=== PATIENT | male | born 1980 | race Caucasian/White ===

== ENCOUNTER 2018-01-04 11:04 | Inpatient (IN) | payer OTHER ==
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
[2018-01-04] MEDS ORDERED: MENTHOL/PHENOL 1 EACH UD MM PRN (14:04)
[2018-01-04] MEDS ORDERED: P-EPHED 60MG/TRIPROLIDI 2.5MG TABLET PO PRN (14:04)
[2018-01-04] MEDS ORDERED: LOPERAMIDE HCL 2 MG CAPSULE PO PRN (14:04)
[2018-01-04] MEDS ORDERED: chlordiazePOXIDE HCL 25 MG CAPSULE PO PRN (14:04)
[2018-01-04] MEDS ORDERED: NICOTINE POLACRILEX 2 MG GUM BC PRN (14:04)
[2018-01-04] MEDS ORDERED: guaiFENesin/D-METHORPHAN HB 10 ML UNIT-DOSE CUPS PO PRN (14:04)
[2018-01-04] MEDS ORDERED: MAGNESIUM CITRATE 300 ML BOTTLE PO PRN (14:04)
[2018-01-04] MEDS ORDERED: MAG HYDROX/AL HYDROX/SIMETH 30 ML UNIT-DOSE CUP PO PRN (14:04)
[2018-01-04] MEDS ORDERED: ACETAMINOPHEN 325 MG TABLET (FP) PO PRN (14:04)
[2018-01-04] MEDS ORDERED: MAGNESIUM HYDROX 2400MG/30ML ORAL SUSPENSION 30 ML CUP PO PRN (14:04)
[2018-01-04] MEDS: NICOTINE 14 MG/24 HOURS TOPICAL PATCH TD SCH (15:56)
[2018-01-04] MEDS: MELATONIN 5 MG TABLETS PO PRN (22:10)
[2018-01-04] MEDS: chlordiazePOXIDE HCL 25 MG CAPSULE PO SCH (22:10)
[2018-01-04] MEDS: THIAMINE HCL 100 MG TABLET (FP) PO SCH (22:10)
[2018-01-05 01:25] LABS: URINE APPEARANCE CLEAR; URINE BILIRUBIN NEGATIVE (<2.0 mg/dL); URINE COLOR COLORLESS; URINE GLUCOSE (UA) NEGATIVE (NEGATIVE); URINE KETONE NEGATIVE (NEGATIVE); URINE LEUK ESTERASE NEGATIVE (NEGATIVE); URINE NITRITE NEGATIVE (NEGATIVE); URINE PROTEIN NEGATIVE (NEGATIVE); URINE UROBILINOGEN NEGATIVE mg/dL (0.2-1.0)
[2018-01-05] MEDS: IBUPROFEN 400 MG TABLET (FP) PO PRN (05:50)
[2018-01-05] MEDS: chlordiazePOXIDE HCL 25 MG CAPSULE PO SCH ×4 (05:50→22:16)
--- NOTE | 2018-01-05 08:53 | CONSULT ---
[facility] Psychiatric Consult - Data Date of interview: 01/05/18 Admission source: [facility] Identifying data: Patient is a 37 year old single male, without kids, homeless, unemployed, and supported by public assistance. This is patient's first admission to detox at [place]. Pt. admitted to for alcohol, marijuana, cocaine, and opiate dependence. Substance Abuse History: Smoking Cessation. Smoking history: Current every day smoker. Have you smoked in the past 12 months: Yes. Aproximately how many cigarettes per day: 2. Cigars Per Day: 0. Hx Chewing Tobacco Use: No. Initiated information on smoking cessation: Yes. 'Breaking Loose' booklet given : 01/04/18. - Substance & Tx. History. Hx Alcohol Use: Yes. Hx Substance Use : Yes. Substance Use Type: Alcohol, Heroin, Marijuana, Opiates. Hx Substance Use Treatment: Yes (11/2016) Medical History: umbilical hernia since 2005 Psychiatric History: Patient reports two psychiatric hospitalizations, most recently in [place] in 2002 after a suicide attempt via hanging self. Pt. was also hospitalized in 2000 in [facility]. Patient is nonadherent to outpatient care. States he last saw an outpatient psychiatrist three months ago. As per pharmacy claims patient's most recent prescription was on 04/15/17 for celexa, depakote and trazodone. Pt. nonadherent to medications. Pt. reports poor sleep. Pt. currently denies suicidal and homicidal ideation. Physical/Sexual Abuse/Trauma History: Denies. Mental Status Exam - Mental Status Exam Alert and Oriented to: Time, Place, Person Cognitive Function: Good Patient Appearance: Well Groomed Mood: Euthymic Affect: Mood Congruent Patient Behavior: Cooperative Speech Pattern: Appropriate Voice Loudness: Normal Thought Process: Intact, Goal Oriented Thought Disorder: Not Present Hallucinations: Denies Suicidal Ideation: Denies Homicidal Ideation: Denies Insight/Judgement: Poor Sleep: Poorly Appetite: Fair Muscle strength/Tone: Normal Gait/Station: Normal Psychiatric Findings - Problem List ([place] 1, 2,3) (1) Alcohol dependence with uncomplicated withdrawal Current Visit: Yes Status: Acute (2) Nicotine dependence Current Visit: Yes Status: Chronic Qualifiers: Nicotine product type: cigarettes Substance use status: in withdrawal Qualified Code(s): F17.213 - Nicotine dependence, cigarettes, with withdrawal (3) Cocaine dependence Current Visit: Yes Status: Acute (4) Methadone maintenance therapy patient Current Visit: Yes Status: Acute (5) Substance induced mood disorder Current Visit: Yes Status: Acute - Initial Treatment Plan Initial Treatment Plan: Psychoeducation provided. Detoxification in progress. Seroquel 50mg qhs ordered. Benefits and side effects discussed. Verbal consent given. Will continue to monitor.
[2018-01-05] MEDS ORDERED: METHADONE HCL 10 MG TABLET PO ONE (08:57)
[2018-01-05] MEDS ORDERED: METHADONE HCL 40 MG DISPERSABLE TABLET ONE (10:15)
[2018-01-05] MEDS ORDERED: METHADONE HCL 10 MG TABLET ONE (10:15)
[2018-01-05] MEDS ORDERED: METHADONE 200 MG, METHADONE 30 MG PO ONE (10:15)
[2018-01-05 10:25] LABS: HEMATOCRIT 37.6 % (35.4-49); HEMOGLOBIN 12.9 GM/dL (11.7-16.9); MCH 31.3 pg (25.7-33.7); MCHC 34.4 g/dl (32.0-35.9); MEAN CELL VOLUME 91.1 fl (80-96); PLATELET COUNT 308 K/MM3 (134-434); RBC 4.13 M/mm3 (4.00-5.60); RDW 13.1 % (11.9-15.9); WHITE BLOOD COUNT 5.2 K/mm3 (4.0-10.0)
[2018-01-05] MEDS: PRENATAL VITAMINS W/ FOLIC ACID TABLET (FP) PO SCH (10:38)
[2018-01-05] MEDS: NICOTINE 14 MG/24 HOURS TOPICAL PATCH TD SCH (10:38)
[2018-01-05 11:32] LABS: CHLORIDE 107 mmol/L (98-107); POTASSIUM 4.6 mmol/L (3.5-5.1); SODIUM 143 mmol/L (136-145)
[2018-01-05 12:39] LABS: ALBUMIN 3.5 g/dl (3.4-5.0); ALK PHOS 87 U/L (45-117); BILIRUBIN,TOTAL 0.2 mg/dL (0.2-1.0); BLOOD UREA NITROGEN 12 mg/dL (7-18); CALCIUM 8.5 mg/dL (8.5-10.1); CREATININE 0.9 mg/dL (0.7-1.3); GLUCOSE,RANDOM 106 mg/dL (74-106); SGOT/AST 21 U/L (15-37); SGPT/ALT 21 U/L (12-78)
[2018-01-05 12:58] LABS: ANION GAP 7 (8-16); CO2 29 mmol/L (21-32)
[2018-01-05] MEDS ORDERED: CYCLOBENZAPRINE HCL 5 MG TABLET PO PRN (12:58)
--- NOTE | 2018-01-05 12:58 | PN ---
[facility] CIWA - CIWA Score Nausea/Vomitin-No Nausea/No Vomiting Muscle Tremors: 4-Moderate,w/Arms Extend Anxiety: 4-Mod. Anxious/Guarded Agitation: 4-Moderately Restless Paroxysmal Sweats: 1-Minimal Palms Moist Orientation: 0-Oriented Tacttile Disturbances: 0-None Auditory Disturbances: 0-None Visual Disturbances: 0-None Headache: 0-None Present CIWA-Ar Total Score: 13 S Progress Note (SOAP) Subjective: ANXIETY,SWEATS, BACK/BODY ACHES, TREMORS, FATIGUE. Objective: 01/05/18 12:57 Vital Signs Temperature 96.7 F L 01/05/18 09:41 Pulse Rate 73 01/05/18 09:41 Respiratory Rate 18 01/05/18 09:41 Blood Pressure 131/75 01/05/18 09:41 O2 Sat by Pulse Oximetry (%) Laboratory Last Values WBC 5.2 K/mm3 (4.0-10.0) 01/05/18 06:00 RBC 4.13 M/mm3 (4.00-5.60) 01/05/18 06:00 Hgb 12.9 GM/dL (11.7-16.9) 01/05/18 06:00 Hct 37.6 % (35.4-49) 01/05/18 06:00 MCV 91.1 fl (80-96) 01/05/18 06:00 MCH 31.3 pg (25.7-33.7) 01/05/18 06:00 MCHC 34.4 g/dl (32.0-35.9) 01/05/18 06:00 RDW 13.1 % (11.9-15.9) 01/05/18 06:00 Plt Count 308 K/MM3 (134-434) 01/05/18 06:00 MPV 9.0 fl (7.5-11.1) 01/05/18 06:00 Sodium 143 mmol/L (136-145) 01/05/18 06:00 Potassium 4.6 mmol/L (3.5-5.1) 01/05/18 06:00 Chloride 107 mmol/L (98-107) 01/05/18 06:00 BUN 12 mg/dL (7-18) 01/05/18 06:00 Creatinine 0.9 mg/dL (0.7-1.3) 01/05/18 06:00 Creat Clearance w eGFR > 60 (>60) 01/05/18 06:00 Random Glucose 106 mg/dL (74-106) 01/05/18 06:00 Calcium 8.5 mg/dL (8.5-10.1) 01/05/18 06:00 Total Bilirubin 0.2 mg/dL (0.2-1.0) 01/05/18 06:00 AST 21 U/L (15-37) 01/05/18 06:00 ALT 21 U/L (12-78) 01/05/18 06:00 Alkaline Phosphatase 87 U/L (45-117) 01/05/18 06:00 Total Protein 7.0 g/dl (6.4-8.2) 01/05/18 06:00 Albumin 3.5 g/dl (3.4-5.0) 01/05/18 06:00 Urine Color Colorless 01/04/18 23:56 Urine Appearance Clear 01/04/18 23:56 Urine pH 6.0 (5.0-8.0) 01/04/18 23:56 Ur Specific [place] 1.002 (1.001-1.035) 01/04/18 23:56 Urine Protein Negative (NEGATIVE) 01/04/18 23:56 Urine Glucose (UA) Negative (NEGATIVE) 01/04/18 23:56 Urine Ketones Negative (NEGATIVE) 01/04/18 23:56 Urine Blood Negative (NEGATIVE) 01/04/18 23:56 Urine Nitrite Negative (NEGATIVE) 01/04/18 23:56 Urine Bilirubin Negative (<2.0 mg/dL) 01/04/18 23:56 Urine Urobilinogen Negative mg/dL (0.2-1.0) 01/04/18 23:56 Ur Leukocyte Esterase Negative (NEGATIVE) 01/04/18 23:56 RPR Titer Nonreactive (NONREACTIVE) 01/05/18 06:00 HIV 1&2 Antibody Screen Negative 01/04/18 06:00 HIV P24 Antigen Negative 01/04/18 06:00 Assessment: 01/05/18 12:57 WITHDRAWAL SX Plan: CONTINUE DETOX MOTRIN PRN FLEXERIL DIRECTED
--- NOTE | 2018-01-05 14:00 | EKG ---
Test Reason : Blood Pressure : / mmHG Vent. Rate : 066 BPM Atrial Rate : 066 BPM P-R Int : 130 ms QRS Dur : 096 ms QT Int : 442 ms P-R-T Axes : 064 066 064 degrees QTc Int : 463 ms NORMAL SINUS RHYTHM NORMAL ECG NO PREVIOUS ECGS AVAILABLE Confirmed by DIYA DAWKINS MD ([id number]) on 01/05/2018 1:59:24 PM Referred By: Confirmed By:DIYA DAWKINS MD
[2018-01-05] MEDS: QUEtiapine FUMARATE 50 MG TABLET PO SCH (22:16)
[2018-01-05] MEDS: MELATONIN 5 MG TABLETS PO PRN (22:16)
[2018-01-05] MEDS: THIAMINE HCL 100 MG TABLET (FP) PO SCH (22:22)
[2018-01-06] MEDS ORDERED: METHADONE HCL 10 MG TABLET ONE (04:29)
[2018-01-06] MEDS ORDERED: METHADONE HCL 40 MG DISPERSABLE TABLET ONE (04:30)
[2018-01-06] MEDS: METHADONE 200 MG, METHADONE 30 MG PO SCH (05:35)
[2018-01-06] MEDS ORDERED: METHADONE HCL 10 MG TABLET PO SCH (06:00)
[2018-01-06] MEDS: chlordiazePOXIDE HCL 25 MG CAPSULE PO SCH ×3 (06:48→17:33)
[2018-01-06] MEDS: PRENATAL VITAMINS W/ FOLIC ACID TABLET (FP) PO SCH (10:37)
[2018-01-06] MEDS: LIDOCAINE 5% TOPICAL PATCH TP SCH (10:38)
[2018-01-06] MEDS: NICOTINE 14 MG/24 HOURS TOPICAL PATCH TD SCH (10:52)
--- NOTE | 2018-01-06 12:05 | PN ---
[facility] CIWA - CIWA Score Nausea/Vomitin-No Nausea/No Vomiting Muscle Tremors: 4-Moderate,w/Arms Extend Anxiety: 4-Mod. Anxious/Guarded Agitation: 4-Moderately Restless Paroxysmal Sweats: 1-Minimal Palms Moist Orientation: 0-Oriented Tacttile Disturbances: 3-Moderate Itch/Numb/Burn (BACK PAIN/ HAND PAIN) Auditory Disturbances: 0-None Visual Disturbances: 0-None Headache: 0-None Present CIWA-Ar Total Score: 16 S Progress Note (SOAP) Subjective: ANXIETY,IRRITABILITY, BACK PIAN- HX HERNIATED DISC, HAND PAIN-HX SURGERIES 10 YRS AGO Objective: 01/06/18 12:02 Vital Signs Temperature 96.6 F L 01/06/18 09:15 Pulse Rate 63 01/06/18 09:15 Respiratory Rate 18 01/06/18 09:15 Blood Pressure 102/68 01/06/18 09:15 O2 Sat by Pulse Oximetry (%) Laboratory Tests 01/04/18 01/04/18 01/05/18 06:00 23:56 06:00 WBC 5.2 RBC 4.13 Hgb 12.9 Hct 37.6 MCV 91.1 MCH 31.3 MCHC 34.4 RDW 13.1 Plt Count 308 MPV 9.0 Sodium Potassium Chloride Carbon Dioxide Anion Gap BUN Creatinine Creat Clearance w eGFR Random Glucose Calcium Total Bilirubin AST ALT Alkaline Phosphatase Total Protein Albumin Urine Color Colorless Urine Appearance Clear Urine pH 6.0 Ur Specific [place] 1.002 Urine Protein Negative Urine Glucose (UA) Negative Urine Ketones Negative Urine Blood Negative Urine Nitrite Negative Urine Bilirubin Negative Urine Urobilinogen Negative Ur Leukocyte Esterase Negative RPR Titer HIV 1&2 Antibody Screen Negative HIV P24 Antigen Negative 01/05/18 01/05/18 06:00 06:00 WBC RBC Hgb Hct MCV MCH MCHC RDW Plt Count MPV Sodium 143 Potassium 4.6 Chloride 107 Carbon Dioxide 29 Anion Gap 7 L BUN 12 Creatinine 0.9 Creat Clearance w eGFR > 60 Random Glucose 106 Calcium 8.5 Total Bilirubin 0.2 AST 21 ALT 21 Alkaline Phosphatase 87 Total Protein 7.0 Albumin 3.5 Urine Color Urine Appearance Urine pH Ur Specific [place] Urine Protein Urine Glucose (UA) Urine Ketones Urine Blood Urine Nitrite Urine Bilirubin Urine Urobilinogen Ur Leukocyte Esterase RPR Titer Nonreactive HIV 1&2 Antibody Screen HIV P24 Antigen Assessment: 01/06/18 12:02 WITHDRAWAL SX Plan: CONTINUE DETOX LIDOCAINE PATCH TOPICAL DAILY DIRECTED INCREASE PO FLUIDS.
[2018-01-06] MEDS: THIAMINE HCL 100 MG TABLET (FP) PO SCH (22:38)
[2018-01-06] MEDS: chlordiazePOXIDE 5 MG CAPSULE PO SCH (22:39)
[2018-01-06] MEDS: QUEtiapine FUMARATE 50 MG TABLET PO SCH (22:39)
[2018-01-06] MEDS: LIDOCAINE PATCH REMOVAL MC SCH (22:40)
[2018-01-06] MEDS: IBUPROFEN 400 MG TABLET (FP) PO PRN (22:42)
[2018-01-07] MEDS ORDERED: METHADONE HCL 40 MG DISPERSABLE TABLET ONE (04:59)
[2018-01-07] MEDS ORDERED: METHADONE HCL 10 MG TABLET ONE (04:59)
[2018-01-07] MEDS: METHADONE 200 MG, METHADONE 30 MG PO SCH (05:27)
[2018-01-07] MEDS: chlordiazePOXIDE 5 MG CAPSULE PO SCH ×3 (05:28→17:12)
[2018-01-07] MEDS: PRENATAL VITAMINS W/ FOLIC ACID TABLET (FP) PO SCH (10:40)
[2018-01-07] MEDS: LIDOCAINE 5% TOPICAL PATCH TP SCH (10:40)
[2018-01-07] MEDS: NICOTINE 14 MG/24 HOURS TOPICAL PATCH TD SCH (10:40)
[2018-01-07] MEDS ORDERED: CYCLOBENZAPRINE HCL 10 MG TABLET (FP) PO PRN (11:05)
--- NOTE | 2018-01-07 12:52 | PN ---
S Progress Note (SOAP) Subjective: PT CONTINUES TO C/O MUSCULOSKELATAL PAIN TO DEFORMITIES ON RIGHT THUMB, BUNION ON RIGHT GREAT TOE AND OLD SX SITE ON LEFT WRIST STATING "THE PIN CAME OUT". ALSO C/O ABDOMINAL DISCOMFORT. HX UMBILICAL HERNIA SINCE 2005 PER PT BUT HAS NOT FOLLOWED UP HIS DOCTOR TOLD HIM. PT AWARE OF HIS DOCTORS INSTRUCTIONS ON WHAT TO DO--BY "PRESSING BACK AT IT WHEN IT COMES OUT". PT WAS OFFERED TO BE EVALUATED AT [facility] ER IF HE THINKS PAIN IS SEVERE BUT HE DECLINED STATING IT'S NOT BAD. THIS TIMBER MANAGEMENT PROFESSOR AND PT'S NURSE WERE AT BEDSIDE TO SPEAK TO AND EXAMINE PATIENT. PT IS OOB AMBULATING AND SOCIALIZING WITH [facility]ER AND DECLINED TO GO TO ER AT THIS TIME. Objective: 01/07/18 12:46 Vital Signs 01/07/18 01/07/18 06:23 10:00 Temperature 96.8 F L 97.6 F Pulse Rate 80 76 Respiratory 18 18 Rate Blood Pressure 102/61 116/75 Laboratory Tests 01/04/18 01/04/18 01/05/18 06:00 23:56 06:00 WBC 5.2 RBC 4.13 Hgb 12.9 Hct 37.6 MCV 91.1 MCH 31.3 MCHC 34.4 RDW 13.1 Plt Count 308 MPV 9.0 Sodium Potassium Chloride Carbon Dioxide Anion Gap BUN Creatinine Creat Clearance w eGFR Random Glucose Calcium Total Bilirubin AST ALT Alkaline Phosphatase Total Protein Albumin Urine Color Colorless Urine Appearance Clear Urine pH 6.0 Ur Specific [place] 1.002 Urine Protein Negative Urine Glucose (UA) Negative Urine Ketones Negative Urine Blood Negative Urine Nitrite Negative Urine Bilirubin Negative Urine Urobilinogen Negative Ur Leukocyte Esterase Negative RPR Titer HIV 1&2 Antibody Screen Negative HIV P24 Antigen Negative 01/05/18 01/05/18 06:00 06:00 WBC RBC Hgb Hct MCV MCH MCHC RDW Plt Count MPV Sodium 143 Potassium 4.6 Chloride 107 Carbon Dioxide 29 Anion Gap 7 L BUN 12 Creatinine 0.9 Creat Clearance w eGFR > 60 Random Glucose 106 Calcium 8.5 Total Bilirubin 0.2 AST 21 ALT 21 Alkaline Phosphatase 87 Total Protein 7.0 Albumin 3.5 Urine Color Urine Appearance Urine pH Ur Specific [place] Urine Protein Urine Glucose (UA) Urine Ketones Urine Blood Urine Nitrite Urine Bilirubin Urine Urobilinogen Ur Leukocyte Esterase RPR Titer Nonreactive HIV 1&2 Antibody Screen HIV P24 Antigen ABDOMEN: SOFT,SLIGHTLY TENDER AT UMBILICAL AREA. SLIGHTLY REDUCIBLE BULGE ABOVE UMBILICUS. Assessment: 01/07/18 12:52 WITHDRAWAL SX UMBILICAL HERNIA, REDUCIBLE Plan: CONTINUE DETOX REFER PT TO [facility] ER IF SEVERE ABDOMINAL PAIN,REDNESS OR DISCOLORATION TO AREA AND HERNIA NOT REDUCIBLE. INCREASE PO FLUIDS
[2018-01-07] MEDS: chlordiazePOXIDE HCL 10 MG CAPSULE PO SCH (22:19)
[2018-01-07] MEDS: QUEtiapine FUMARATE 50 MG TABLET PO SCH (22:19)
[2018-01-07] MEDS: THIAMINE HCL 100 MG TABLET (FP) PO SCH (22:19)
[2018-01-07] MEDS: LIDOCAINE PATCH REMOVAL MC SCH (22:20)
[2018-01-08] MEDS ORDERED: METHADONE HCL 10 MG TABLET ONE (04:32)
[2018-01-08] MEDS ORDERED: METHADONE HCL 40 MG DISPERSABLE TABLET ONE (04:33)
[2018-01-08] MEDS: METHADONE 200 MG, METHADONE 30 MG PO SCH (05:44)
[2018-01-08] MEDS: chlordiazePOXIDE HCL 10 MG CAPSULE PO SCH (05:44)
[2018-01-08 06:25] VITALS: BP 115/74; PULSE 96; TEMP 97.7
--- NOTE | 2018-01-08 18:12 | PN ---
[facility] Progress Note (SOAP) Subjective: Patient denies current Detox symptoms and reports that he feels well overall. Objective: PATIENT A & O X 3, OBSERVED AMBULATING ON UNIT. NO ACUTE DISTRESS. 01/08/18 18:11 Vital Signs Temperature 97.7 F 01/08/18 06:24 Pulse Rate 96 H 01/08/18 06:24 Respiratory Rate 18 01/08/18 06:24 Blood Pressure 115/74 01/08/18 06:24 O2 Sat by Pulse Oximetry (%) Laboratory Tests 01/04/18 01/04/18 01/05/18 06:00 23:56 06:00 WBC 5.2 RBC 4.13 Hgb 12.9 Hct 37.6 MCV 91.1 MCH 31.3 MCHC 34.4 RDW 13.1 Plt Count 308 MPV 9.0 Sodium Potassium Chloride Carbon Dioxide Anion Gap BUN Creatinine Creat Clearance w eGFR Random Glucose Calcium Total Bilirubin AST ALT Alkaline Phosphatase Total Protein Albumin Urine Color Colorless Urine Appearance Clear Urine pH 6.0 Ur Specific [place] 1.002 Urine Protein Negative Urine Glucose (UA) Negative Urine Ketones Negative Urine Blood Negative Urine Nitrite Negative Urine Bilirubin Negative Urine Urobilinogen Negative Ur Leukocyte Esterase Negative RPR Titer HIV 1&2 Antibody Screen Negative HIV P24 Antigen Negative 01/05/18 01/05/18 06:00 06:00 WBC RBC Hgb Hct MCV MCH MCHC RDW Plt Count MPV Sodium 143 Potassium 4.6 Chloride 107 Carbon Dioxide 29 Anion Gap 7 L BUN 12 Creatinine 0.9 Creat Clearance w eGFR > 60 Random Glucose 106 Calcium 8.5 Total Bilirubin 0.2 AST 21 ALT 21 Alkaline Phosphatase 87 Total Protein 7.0 Albumin 3.5 Urine Color Urine Appearance Urine pH Ur Specific [place] Urine Protein Urine Glucose (UA) Urine Ketones Urine Blood Urine Nitrite Urine Bilirubin Urine Urobilinogen Ur Leukocyte Esterase RPR Titer Nonreactive HIV 1&2 Antibody Screen HIV P24 Antigen LABS NOTED. Assessment: 01/08/18 18:11 COMPLETION OF DETOX REGIMEN. Plan: PATIENT SCHEDULED FOR DISCHARGE FROM DETOX UNIT TODAY.
--- NOTE | 2018-01-08 18:16 | DS ---
[facility] Detox Discharge Summary Admission Date: 01/04/18 Discharge Date: 01/08/18 - History Present History: Alcohol Dependence, Cocaine Dependence Additional Comments: PATIENT RETURNING TO [facility] ([place], [place] FOR AFTERCARE. PATIENT ALSO ADVISED TO CONSIDER LOCAL 12- STEP / NA/ AA OUTPATIENT SUPPORT GROUPS FOR AFTERCARE. PATIENT WAS DISCHARGED FORM DETOX UNIT IN STABLE MEDICAL CONDITION. Pertinent Past History: History of Umbilical Hernia, Depression, Weight Loss, MMTP, Chronic Back Pain. - Physical Exam Results Vital Signs: Vital Signs Temperature 97.7 F 01/08/18 06:24 Pulse Rate 96 H 01/08/18 06:24 Respiratory Rate 18 01/08/18 06:24 Blood Pressure 115/74 01/08/18 06:24 O2 Sat by Pulse Oximetry (%) Pertinent Admission Physical Exam Findings: WITHDRAWAL SYMPTOMS. Laboratory Tests 01/04/18 01/04/18 01/05/18 06:00 23:56 06:00 WBC 5.2 RBC 4.13 Hgb 12.9 Hct 37.6 MCV 91.1 MCH 31.3 MCHC 34.4 RDW 13.1 Plt Count 308 MPV 9.0 Sodium Potassium Chloride Carbon Dioxide Anion Gap BUN Creatinine Creat Clearance w eGFR Random Glucose Calcium Total Bilirubin AST ALT Alkaline Phosphatase Total Protein Albumin Urine Color Colorless Urine Appearance Clear Urine pH 6.0 Ur Specific [place] 1.002 Urine Protein Negative Urine Glucose (UA) Negative Urine Ketones Negative Urine Blood Negative Urine Nitrite Negative Urine Bilirubin Negative Urine Urobilinogen Negative Ur Leukocyte Esterase Negative RPR Titer HIV 1&2 Antibody Screen Negative HIV P24 Antigen Negative 01/05/18 01/05/18 06:00 06:00 WBC RBC Hgb Hct MCV MCH MCHC RDW Plt Count MPV Sodium 143 Potassium 4.6 Chloride 107 Carbon Dioxide 29 Anion Gap 7 L BUN 12 Creatinine 0.9 Creat Clearance w eGFR > 60 Random Glucose 106 Calcium 8.5 Total Bilirubin 0.2 AST 21 ALT 21 Alkaline Phosphatase 87 Total Protein 7.0 Albumin 3.5 Urine Color Urine Appearance Urine pH Ur Specific [place] Urine Protein Urine Glucose (UA) Urine Ketones Urine Blood Urine Nitrite Urine Bilirubin Urine Urobilinogen Ur Leukocyte Esterase RPR Titer Nonreactive HIV 1&2 Antibody Screen HIV P24 Antigen LABS NOTED. - Treatment Hospital Course: Detox Protocol Followed, Detoxed Safely, Responded well, Discharged Condition Good Patient has Accepted a Rehab Referral to: PT. RETURNNIG TO [facility] ([place], [place] FOR AFTERCARE. - Medication Discharge Medications: Ambulatory Orders NK [No Known Home Medication] 01/04/18 - Diagnosis (1) Alcohol dependence with uncomplicated withdrawal Status: Acute (2) Cocaine dependence Status: Acute Qualifiers: Substance use status: uncomplicated Qualified Code(s): F14.20 - Cocaine dependence, uncomplicated (3) Nicotine dependence Status: Acute Qualifiers: Nicotine product type: cigarettes Substance use status: in withdrawal Qualified Code(s): F17.213 - Nicotine dependence, cigarettes, with withdrawal (4) Chronic back pain Status: Chronic Qualifiers: Back pain location: low back pain Back pain laterality: bilateral Sciatica presence: without sciatica Qualified Code(s): M54.5 - Low back pain; G89.29 - Other chronic pain; G89.29 - Other chronic pain (5) History of umbilical hernia Status: Chronic (6) Methadone maintenance therapy patient Status: Chronic (7) Substance induced mood disorder Status: Acute - AMA Did Patient Leave Against Medical Advice: No
== END 2018-01-08 09:41 | disposition home or self-care (01) | DRG 773 ==
LOC: YASAS 11:04 → Y3N 15:08
PROVIDERS: ADMIT Internal Medicine; ATTEND Internal Medicine
PROC: HZ2ZZZZ Detoxification Services for Substance Abuse Treatment (ICD-10-PCS; principal; 2018-01-04)
DX: F11.20 Opioid dependence, uncomplicated (principal); F10.230 Alcohol dependence with withdrawal, uncomplicated; F14.20 Cocaine dependence, uncomplicated; F17.210 Nicotine dependence, cigarettes, uncomplicated; F19.24 Other psychoactive substance dependence with psychoactive substance-induced mood disorder; K42.9 Umbilical hernia without obstruction or gangrene; M54.5 Low back pain; G89.29 Other chronic pain; R63.4 Abnormal weight loss; Z68.20 Body mass index [BMI] 20.0-20.9, adult
CPT/HCPCS: 36415; 80053; 81003; 85027; 86593; 87389; 93005; 93010